=== PATIENT | female | born 1960 | race Caucasian/White ===

== ENCOUNTER 2016-06-13 12:08 | Inpatient (IN) | payer OTHER ==
[2016-06-13 14:44] VITALS: BMI 26.4
[2016-06-13] MEDS ORDERED: MAGNESIUM CITRATE 300 ML BOTTLE PO PRN (15:26)
[2016-06-13] MEDS ORDERED: LOPERAMIDE HCL 2 MG CAPSULE PO PRN (15:26)
[2016-06-13] MEDS ORDERED: NICOTINE POLACRILEX 2 MG GUM BC PRN (15:26)
[2016-06-13] MEDS ORDERED: P-EPHED 60MG/TRIPROLIDI 2.5MG TABLET PO PRN (15:26)
[2016-06-13] MEDS ORDERED: ACETAMINOPHEN 325 MG TABLET (FP) PO PRN (15:26)
[2016-06-13] MEDS ORDERED: MENTHOL/PHENOL 1 EACH UD MM PRN (15:26)
[2016-06-13] MEDS ORDERED: MAGNESIUM HYDROX 2400MG/30ML ORAL SUSPENSION 30 ML CUP PO PRN (15:26)
[2016-06-13] MEDS ORDERED: guaiFENesin/D-METHORPHAN HB 10 ML UNIT-DOSE CUPS PO PRN (15:26)
[2016-06-13] MEDS ORDERED: MAG HYDROX/AL HYDROX/SIMETH 30 ML UNIT-DOSE CUP PO PRN (15:26)
[2016-06-13] MEDS ORDERED: hydrOXYzine PAMOATE 50 MG CAPSULE (FP) PO PRN (15:26)
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
[2016-06-13] MEDS ORDERED: chlordiazePOXIDE HCL 25 MG CAPSULE PO PRN (15:33)
[2016-06-13] MEDS ORDERED: chlordiazePOXIDE HCL 25 MG CAPSULE PO ONE (16:30)
[2016-06-13] MEDS: CYCLOBENZAPRINE HCL 10 MG TABLET (FP) PO SCH ×2 (16:53→22:29)
[2016-06-13] MEDS: GABAPENTIN 100 MG CAPSULE (FP) PO SCH ×2 (16:53→22:30)
[2016-06-13] MEDS: NICOTINE 14 MG/24 HOURS TOPICAL PATCH TD SCH (16:53)
[2016-06-13] MEDS: chlordiazePOXIDE HCL 25 MG CAPSULE PO SCH ×2 (16:55→22:29)
[2016-06-13 20:07] LABS: URINE APPEARANCE SLCLOUDY; URINE BLOOD NEGATIVE (NEGATIVE); URINE COLOR AMBER; URINE GLUCOSE (UA) NEGATIVE (NEGATIVE); URINE KETONE TRACE (NEGATIVE); URINE NITRITE NEGATIVE (NEGATIVE); URINE UROBILINOGEN 2.0 E.U/dl E.U./dl (0.2-1.0)
[2016-06-13 20:11] LABS: URINE LEUK ESTERASE 1+ (NEGATIVE); URINE PROTEIN 1+ (NEGATIVE)
[2016-06-13 20:16] LABS: URINE BACTERIA RARE /hpf (NONE SEEN); URINE HYALINE CAST 112 /lpf; URINE MUCUS FEW; URINE RBC 4 /hpf (0-3); URINE WBC 7 /hpf (3-5)
[2016-06-13] MEDS ORDERED: AMITRIPTYLINE HCL 25 MG TABLET (FP) PO SCH (22:00)
[2016-06-13] MEDS: diphenhydrAMINE HCL 50 MG CAPSULE PO PRN (22:28)
[2016-06-13] MEDS: DOCUSATE SODIUM 100 MG CAPSULE (FP) PO SCH (22:28)
[2016-06-13] MEDS: NAPROXEN 500 MG TABLET (FP) PO SCH (22:30)
[2016-06-13] MEDS: THIAMINE HCL 100 MG TABLET (FP) PO SCH (22:30)
[2016-06-14] MEDS: chlordiazePOXIDE HCL 25 MG CAPSULE PO SCH ×4 (05:32→23:03)
[2016-06-14] MEDS: CYCLOBENZAPRINE HCL 10 MG TABLET (FP) PO SCH ×3 (05:32→22:24)
[2016-06-14] MEDS: GABAPENTIN 100 MG CAPSULE (FP) PO SCH ×3 (05:32→22:25)
[2016-06-14] MEDS ORDERED: METHADONE HCL 10 MG TABLET PO ONE (08:28)
[2016-06-14] MEDS ORDERED: METHADONE 80 MG, METHADONE 20 MG PO ONE (08:50)
[2016-06-14] MEDS ORDERED: METHADONE HCL 10 MG TABLET ONE (08:53)
[2016-06-14] MEDS ORDERED: METHADONE HCL 40 MG DISPERSABLE TABLET ONE (08:53)
[2016-06-14 10:04] LABS: MCH 33.2 pg (25.7-33.7); MCHC 34.4 g/dl (32.0-36.0); MEAN CELL VOLUME 96.5 fl (80-96); MEAN PLT VOLUME 11.5 fl (7.5-11.1); PLATELET COUNT 127 K/MM3 (134-434); RDW 13.6 % (11.6-15.6); WHITE BLOOD COUNT 10.7 K/mm3 (4.0-10.0)
[2016-06-14] MEDS: PRENATAL VITAMINS W/ FOLIC ACID TABLET (FP) PO SCH (10:31)
[2016-06-14] MEDS: NAPROXEN 500 MG TABLET (FP) PO SCH ×2 (10:31→22:24)
[2016-06-14] MEDS: NICOTINE 14 MG/24 HOURS TOPICAL PATCH TD SCH (10:32)
[2016-06-14 11:12] LABS: ALBUMIN 3.8 g/dl (3.4-5.0); ALK PHOS 178 U/L (45-117); ANION GAP 7 (8-16); BILIRUBIN,TOTAL 0.8 mg/dL (0.2-1.0); CALCIUM 9.2 mg/dL (8.5-10.1); CO2 31 mmol/L (21-32); CREATININE 0.9 mg/dL (0.55-1.02); GLUCOSE,RANDOM 181 mg/dL (74-106); SGOT/AST 52 U/L (15-37); SGPT/ALT 52 U/L (12-78)
--- NOTE | 2016-06-14 11:50 | PN ---
S CIWA - CIWA Score Nausea/Vomitin Muscle Tremors: 2 Anxiety: 3 Agitation: 3 Paroxysmal Sweats: 2 Orientation: 0-Oriented Tacttile Disturbances: 2-Mild Itch/Numbness/Burn Auditory Disturbances: 0-None Visual Disturbances: 0-None Headache: 0-None Present CIWA-Ar Total Score: 14 S Progress Note (SOAP) Subjective: interrupted sleep, lbp, Objective: 06/14/16 11:48 Vital Signs Temperature 97.9 F 06/14/16 09:39 Pulse Rate 93 H 06/14/16 09:39 Respiratory Rate 18 06/14/16 09:39 Blood Pressure 115/59 06/14/16 09:39 O2 Sat by Pulse Oximetry (%) Laboratory Tests 06/13/16 06/13/16 06/14/16 15:55 19:00 05:31 WBC RBC Hgb Hct MCV MCHC RDW Plt Count MPV Sodium Potassium Chloride Carbon Dioxide Anion Gap BUN Creatinine Creat Clearance w eGFR POC Glucometer 146 117 Random Glucose Calcium Total Bilirubin AST ALT Alkaline Phosphatase Total Protein Albumin Urine Color Mary Urine Appearance Slcloudy Urine pH 5.0 Ur Specific [place] 1.035 Urine Protein 1+ H Urine Glucose (UA) Negative Urine Ketones Trace H Urine Blood Negative Urine Nitrite Negative Urine Bilirubin 2.0 Urine Urobilinogen 2.0 e.u/dl H Ur Leukocyte Esterase 1+ H Urine RBC 4 Urine WBC 7 Ur Epithelial Cells Rare Urine Bacteria Rare Hyaline Casts 112 Urine Mucus Few RPR Titer 06/14/16 06/14/16 06/14/16 05:50 05:50 05:50 WBC 10.7 H RBC 4.86 Hgb 16.1 H Hct 46.8 H MCV 96.5 H MCHC 34.4 RDW 13.6 Plt Count 127 L MPV 11.5 H D Sodium 136 Potassium 4.4 Chloride 98 Carbon Dioxide 31 Anion Gap 7 L BUN 17 D Creatinine 0.9 D Creat Clearance w eGFR > 60 POC Glucometer Random Glucose 181 H D Calcium 9.2 Total Bilirubin 0.8 AST 52 H D ALT 52 Alkaline Phosphatase 178 H Total Protein 8.0 Albumin 3.8 Urine Color Urine Appearance Urine pH Ur Specific [place] Urine Protein Urine Glucose (UA) Urine Ketones Urine Blood Urine Nitrite Urine Bilirubin Urine Urobilinogen Ur Leukocyte Esterase Urine RBC Urine WBC Ur Epithelial Cells Urine Bacteria Hyaline Casts Urine Mucus RPR Titer Nonreactive pt aox3 , ambulating Assessment: 06/14/16 11:49 withdrawl sx's Plan: cont. detox increase fluids lidocaine patch
--- NOTE | 2016-06-14 14:03 | CONSULT ---
[facility] Psychiatric Consult - Data Date of interview: 06/14/16 Admission source: [facility] Identifying data: Readmission to [facility] for this 56 y/o female seeking detox treatment on for heroin dependence.Patient is single,a mother of two,domiciled,unemployed and supported on SSI benefits. Substance Abuse History: - Smoking Cessation. Smoking history: Current every day smoker. Have you smoked in the past 12 months: Yes. Aproximately how many cigarettes per day: 10. Hx Chewing Tobacco Use: No. Initiated information on smoking cessation: Yes. 'Breaking Loose' booklet given: 06/13/16. - Substance & Tx. History. Hx Alcohol Use: No. Hx Substance Use: Yes. Substance Use Type : Heroin, Opiates, Prescribed, Tranquilizers. Hx Substance Use Treatment: Yes ( on MMTP). - Substances Abused. Benzodiazepine (Klonopin). Route: Oral. Frequency: Daily. Amount used: 4 tablets, 2mg. Age of first use: 16. Date of Last Use: 06/12/16. Heroin. Route: Injection. Frequency: Daily. Amount used: injected x1 year has not used for many years. Age of first use: 28. Confirmed by patient. Medical History: Remarkable for diabetes mellitus-type II,bronchial asthma, hepatitis C,hypercholesterolemia,neuropathy,withdrawal-related seizures (2012) and tubal ligation. Psychiatric History: Patient admits to a history of two psychiatric hospitalizations ([facility]) years ago.Ms Campuzano endorses MDD,Anxiety Disorder and Schizophrenia.She gets her outpatient psychiatric services at [facility] also [facility] ([facility]).Ms Campuzano indicates her medications as klonopin and sertraline (doses not recalled).Remote history of two suicide attempts (wrist-cutting and hanging). Physical/Sexual Abuse/Trauma History: Patient denies. Additional Comment: Urine Drug Screen Results: OPI-Opiates, BZO-Benzodiazepines , MTD-Methadone, TCA-Tricyclic Antidepress, OXY-Oxycodone.Noted. Mental Status Exam - Mental Status Exam Alert and Oriented to: Time, Place, Person Cognitive Function: Good Patient Appearance: Disheveled Mood: Withdrawn, Anxious Affect: Mood Congruent Patient Behavior: Sedated, Fatigued, Talkative, Cooperative Speech Pattern: Clear, Appropriate (bahraini-speaking but able to communicate with this card writer hand) Voice Loudness: Normal Thought Process: Goal Oriented Thought Disorder: Not Present Hallucinations: Denies Suicidal Ideation: Denies Homicidal Ideation: Denies Insight/Judgement: Poor Sleep: Fair Appetite: Good Muscle strength/Tone: Normal Gait/Station: Normal Psychiatric Findings - Problem List (Trail 1, 2,3) (1) Opioid dependence on agonist therapy Current Visit: Yes Status: Acute (2) Sedative dependence Current Visit: Yes Status: Acute (3) Substance induced mood disorder Current Visit: Yes Status: Acute (4) Depressive disorder Current Visit: Yes Status: Chronic Comment: By history. (5) Diabetes Current Visit: Yes Status: Chronic Qualifiers: Diabetes mellitus type: type 2 Diabetes mellitus complication status: without complication (6) Chronic back pain Current Visit: Yes Status: Chronic Qualifiers: Back pain location: low back pain (7) Hepatitis C carrier Current Visit: Yes Status: Chronic (8) Hyperlipidemia Current Visit: Yes Status: Chronic - Initial Treatment Plan Initial Treatment Plan: Psychoeducation.Detoxification.Medications :zoloft 50 mg po daily.Side effects/benefits discussed with patient.She agrees with this plan.Medications were verified through review of pharmacy claims (noted filled scripts for sertraline,gabapentin and zolpidem on 05/14/16 @ [facility]).Observation.
[2016-06-14] MEDS: THIAMINE HCL 100 MG TABLET (FP) PO SCH (22:23)
[2016-06-14] MEDS: DOCUSATE SODIUM 100 MG CAPSULE (FP) PO SCH (22:24)
[2016-06-15] MEDS ORDERED: METHADONE HCL 40 MG DISPERSABLE TABLET ONE (04:42)
[2016-06-15] MEDS ORDERED: METHADONE HCL 10 MG TABLET ONE (04:42)
[2016-06-15] MEDS: GABAPENTIN 100 MG CAPSULE (FP) PO SCH ×4 (05:08→22:36)
[2016-06-15] MEDS: chlordiazePOXIDE HCL 25 MG CAPSULE PO SCH ×2 (05:08→10:41)
[2016-06-15] MEDS: METHADONE 80 MG, METHADONE 20 MG PO SCH (05:08)
[2016-06-15] MEDS: CYCLOBENZAPRINE HCL 10 MG TABLET (FP) PO SCH ×4 (05:08→22:37)
[2016-06-15] MEDS ORDERED: METHADONE HCL 40 MG DISPERSABLE TABLET PO SCH (06:00)
[2016-06-15] MEDS: SERTRALINE HCL 50 MG TABLET (FP) PO SCH (10:41)
[2016-06-15] MEDS: PRENATAL VITAMINS W/ FOLIC ACID TABLET (FP) PO SCH (10:41)
[2016-06-15] MEDS: NAPROXEN 500 MG TABLET (FP) PO SCH ×2 (10:43→22:36)
[2016-06-15] MEDS: NICOTINE 14 MG/24 HOURS TOPICAL PATCH TD SCH (11:30)
--- NOTE | 2016-06-15 11:36 | PN ---
[facility] CIWA - CIWA Score Nausea/Vomitin-No Nausea/No Vomiting Muscle Tremors: 3 Anxiety: 3 Agitation: 4-Moderately Restless Paroxysmal Sweats: 3 Orientation: 0-Oriented Tacttile Disturbances: 0-None Auditory Disturbances: 0-None Visual Disturbances: 0-None Headache: 0-None Present CIWA-Ar Total Score: 13 S Progress Note (SOAP) Subjective: agitation anxiety sweats constipation Objective: 06/15/16 11:35 Vital Signs Temperature 98.2 F 06/15/16 09:42 Pulse Rate 89 06/15/16 09:42 Respiratory Rate 16 06/15/16 09:42 Blood Pressure 120/62 06/15/16 09:42 O2 Sat by Pulse Oximetry (%) Laboratory Tests 06/13/16 06/13/16 06/14/16 15:55 19:00 05:31 WBC RBC Hgb Hct MCV MCHC RDW Plt Count MPV Sodium Potassium Chloride Carbon Dioxide Anion Gap BUN Creatinine Creat Clearance w eGFR POC Glucometer 146 117 Random Glucose Calcium Total Bilirubin AST ALT Alkaline Phosphatase Total Protein Albumin Urine Color Mary Urine Appearance Slcloudy Urine pH 5.0 Ur Specific [place] 1.035 Urine Protein 1+ H Urine Glucose (UA) Negative Urine Ketones Trace H Urine Blood Negative Urine Nitrite Negative Urine Bilirubin 2.0 Urine Urobilinogen 2.0 e.u/dl H Ur Leukocyte Esterase 1+ H Urine RBC 4 Urine WBC 7 Ur Epithelial Cells Rare Urine Bacteria Rare Hyaline Casts 112 Urine Mucus Few RPR Titer 06/14/16 06/14/16 06/14/16 05:50 05:50 05:50 WBC 10.7 H RBC 4.86 Hgb 16.1 H Hct 46.8 H MCV 96.5 H MCHC 34.4 RDW 13.6 Plt Count 127 L MPV 11.5 H D Sodium 136 Potassium 4.4 Chloride 98 Carbon Dioxide 31 Anion Gap 7 L BUN 17 D Creatinine 0.9 D Creat Clearance w eGFR > 60 POC Glucometer Random Glucose 181 H D Calcium 9.2 Total Bilirubin 0.8 AST 52 H D ALT 52 Alkaline Phosphatase 178 H Total Protein 8.0 Albumin 3.8 Urine Color Urine Appearance Urine pH Ur Specific [place] Urine Protein Urine Glucose (UA) Urine Ketones Urine Blood Urine Nitrite Urine Bilirubin Urine Urobilinogen Ur Leukocyte Esterase Urine RBC Urine WBC Ur Epithelial Cells Urine Bacteria Hyaline Casts Urine Mucus RPR Titer Nonreactive 06/14/16 06/15/16 16:30 06:24 WBC RBC Hgb Hct MCV MCHC RDW Plt Count MPV Sodium Potassium Chloride Carbon Dioxide Anion Gap BUN Creatinine Creat Clearance w eGFR POC Glucometer 147 166 Random Glucose Calcium Total Bilirubin AST ALT Alkaline Phosphatase Total Protein Albumin Urine Color Urine Appearance Urine pH Ur Specific [place] Urine Protein Urine Glucose (UA) Urine Ketones Urine Blood Urine Nitrite Urine Bilirubin Urine Urobilinogen Ur Leukocyte Esterase Urine RBC Urine WBC Ur Epithelial Cells Urine Bacteria Hyaline Casts Urine Mucus RPR Titer awake/alert ambulating no acute distress Assessment: 06/15/16 11:35 withdrawal sx Plan: continue detox increase fluids citroma prn
--- NOTE | 2016-06-15 12:32 | EKG ---
Test Reason : Blood Pressure : / mmHG Vent. Rate : 089 BPM Atrial Rate : 089 BPM P-R Int : 190 ms QRS Dur : 092 ms QT Int : 398 ms P-R-T Axes : 076 075 057 degrees QTc Int : 484 ms NORMAL SINUS RHYTHM NONSPECIFIC T WAVE ABNORMALITY PROLONGED QT ABNORMAL ECG NO PREVIOUS ECGS AVAILABLE Confirmed by LILLIAM EID MD ([id number]) on 06/15/2016 12:31:58 PM Referred By: Confirmed By:LILLIAM EID MD
[2016-06-15] MEDS: chlordiazePOXIDE 5 MG CAPSULE PO SCH ×2 (17:35→22:36)
[2016-06-15] MEDS: THIAMINE HCL 100 MG TABLET (FP) PO SCH (22:36)
[2016-06-15] MEDS: DOCUSATE SODIUM 100 MG CAPSULE (FP) PO SCH (22:36)
[2016-06-16] MEDS ORDERED: METHADONE HCL 10 MG TABLET ONE (04:52)
[2016-06-16] MEDS ORDERED: METHADONE HCL 40 MG DISPERSABLE TABLET ONE (04:53)
[2016-06-16] MEDS: CYCLOBENZAPRINE HCL 10 MG TABLET (FP) PO SCH ×3 (05:05→22:30)
[2016-06-16] MEDS: GABAPENTIN 100 MG CAPSULE (FP) PO SCH ×3 (05:05→22:31)
[2016-06-16] MEDS: chlordiazePOXIDE 5 MG CAPSULE PO SCH ×2 (05:06→10:27)
[2016-06-16] MEDS: METHADONE 80 MG, METHADONE 20 MG PO SCH (06:10)
[2016-06-16] MEDS: PRENATAL VITAMINS W/ FOLIC ACID TABLET (FP) PO SCH (10:27)
[2016-06-16] MEDS: NICOTINE 14 MG/24 HOURS TOPICAL PATCH TD SCH (10:27)
[2016-06-16] MEDS: NAPROXEN 500 MG TABLET (FP) PO SCH ×2 (10:27→22:31)
[2016-06-16] MEDS: SERTRALINE HCL 50 MG TABLET (FP) PO SCH (10:28)
[2016-06-16] MEDS ORDERED: LIDOCAINE 5% TOPICAL PATCH TP ONE (12:53)
--- NOTE | 2016-06-16 12:57 | PN ---
BHS Progress Note (SOAP) Subjective: BUT HAVING PAINFUL BACK AND RT SHOULDER Objective: 06/16/16 12:55 Vital Signs Temperature 97.9 F 06/16/16 10:08 Pulse Rate 85 06/16/16 10:08 Respiratory Rate 18 06/16/16 10:08 Blood Pressure 119/62 06/16/16 10:08 O2 Sat by Pulse Oximetry (%) Laboratory Tests 06/13/16 06/13/16 06/14/16 15:55 19:00 05:31 WBC RBC Hgb Hct MCV MCHC RDW Plt Count MPV Sodium Potassium Chloride Carbon Dioxide Anion Gap BUN Creatinine Creat Clearance w eGFR POC Glucometer 146 117 Random Glucose Calcium Total Bilirubin AST ALT Alkaline Phosphatase Total Protein Albumin Urine Color Mary Urine Appearance Slcloudy Urine pH 5.0 Ur Specific [place] 1.035 Urine Protein 1+ H Urine Glucose (UA) Negative Urine Ketones Trace H Urine Blood Negative Urine Nitrite Negative Urine Bilirubin 2.0 Urine Urobilinogen 2.0 e.u/dl H Ur Leukocyte Esterase 1+ H Urine RBC 4 Urine WBC 7 Ur Epithelial Cells Rare Urine Bacteria Rare Hyaline Casts 112 Urine Mucus Few RPR Titer 06/14/16 06/14/16 06/14/16 05:50 05:50 05:50 WBC 10.7 H RBC 4.86 Hgb 16.1 H Hct 46.8 H MCV 96.5 H MCHC 34.4 RDW 13.6 Plt Count 127 L MPV 11.5 H D Sodium 136 Potassium 4.4 Chloride 98 Carbon Dioxide 31 Anion Gap 7 L BUN 17 D Creatinine 0.9 D Creat Clearance w eGFR > 60 POC Glucometer Random Glucose 181 H D Calcium 9.2 Total Bilirubin 0.8 AST 52 H D ALT 52 Alkaline Phosphatase 178 H Total Protein 8.0 Albumin 3.8 Urine Color Urine Appearance Urine pH Ur Specific [place] Urine Protein Urine Glucose (UA) Urine Ketones Urine Blood Urine Nitrite Urine Bilirubin Urine Urobilinogen Ur Leukocyte Esterase Urine RBC Urine WBC Ur Epithelial Cells Urine Bacteria Hyaline Casts Urine Mucus RPR Titer Nonreactive 06/14/16 06/15/16 06/16/16 16:30 06:24 06:08 WBC RBC Hgb Hct MCV MCHC RDW Plt Count MPV Sodium Potassium Chloride Carbon Dioxide Anion Gap BUN Creatinine Creat Clearance w eGFR POC Glucometer 147 166 199 Random Glucose Calcium Total Bilirubin AST ALT Alkaline Phosphatase Total Protein Albumin Urine Color Urine Appearance Urine pH Ur Specific [place] Urine Protein Urine Glucose (UA) Urine Ketones Urine Blood Urine Nitrite Urine Bilirubin Urine Urobilinogen Ur Leukocyte Esterase Urine RBC Urine WBC Ur Epithelial Cells Urine Bacteria Hyaline Casts Urine Mucus RPR Titer PT AOX3 IN NAD AMBULATING Assessment: 06/16/16 12:55 WITHDRAWL SX'S RT SHOULDER PAIN S/P RCT LBP Plan: CONT. DETOX INCREASE FLUIDS LIDOCAINE PATCH/D
[2016-06-16] MEDS: chlordiazePOXIDE HCL 10 MG CAPSULE PO SCH ×2 (18:05→22:30)
[2016-06-16] MEDS: DOCUSATE SODIUM 100 MG CAPSULE (FP) PO SCH (22:30)
[2016-06-16] MEDS: diphenhydrAMINE HCL 50 MG CAPSULE PO PRN (22:30)
[2016-06-16] MEDS: THIAMINE HCL 100 MG TABLET (FP) PO SCH (22:31)
[2016-06-17] MEDS ORDERED: METHADONE HCL 40 MG DISPERSABLE TABLET ONE (04:44)
[2016-06-17] MEDS ORDERED: METHADONE HCL 10 MG TABLET ONE (04:44)
[2016-06-17] MEDS: CYCLOBENZAPRINE HCL 10 MG TABLET (FP) PO SCH (05:47)
[2016-06-17] MEDS: chlordiazePOXIDE HCL 10 MG CAPSULE PO SCH (05:47)
[2016-06-17] MEDS: GABAPENTIN 100 MG CAPSULE (FP) PO SCH (05:47)
[2016-06-17] MEDS: METHADONE 80 MG, METHADONE 20 MG PO SCH (05:47)
[2016-06-17] MEDS: PRENATAL VITAMINS W/ FOLIC ACID TABLET (FP) PO SCH (09:00)
[2016-06-17] MEDS: NAPROXEN 500 MG TABLET (FP) PO SCH (09:00)
[2016-06-17] MEDS: SERTRALINE HCL 50 MG TABLET (FP) PO SCH (09:01)
--- NOTE | 2016-06-17 09:45 | DS ---
[facility] Detox Discharge Summary Admission Date: 06/13/16 Discharge Date: 06/17/16 - History Present History: Opioid Dependence, Sedative Dependence - Physical Exam Results Vital Signs: Vital Signs Temperature 97.7 F 06/17/16 07:16 Pulse Rate 94 H 06/17/16 07:16 Respiratory Rate 20 06/17/16 07:16 Blood Pressure 111/60 06/17/16 07:16 O2 Sat by Pulse Oximetry (%) - Treatment Hospital Course: Detox Protocol Followed, Detoxed Safely, Responded well, Discharged Condition Good, Rehab Referral Accepted - Medication Discharge Medications: Ambulatory Orders Methadone [Dolophine] 100 mg PO DAILY 10/03/12 Sertraline HCl [Zoloft -] 50 mg PO DAILY #30 tablet 06/14/16 Gabapentin [Neurontin -] 100 mg PO TID #0 capsule 06/17/16 - Diagnosis (1) Opioid dependence on agonist therapy Current Visit: Yes Status: Chronic (2) Sedative dependence Current Visit: Yes Status: Chronic (3) Substance induced mood disorder Current Visit: Yes Status: Acute (4) Chronic back pain Current Visit: Yes Status: Chronic Qualifiers: Back pain location: low back pain (5) Depressive disorder Current Visit: Yes Status: Chronic (6) Diabetes Current Visit: Yes Status: Chronic Qualifiers: Diabetes mellitus type: type 2 Diabetes mellitus complication status: without complication (7) Hepatitis C carrier Current Visit: Yes Status: Chronic (8) Hyperlipidemia Current Visit: Yes Status: Chronic - AMA Did Patient Leave Against Medical Advice: No
[2016-06-17] MEDS ORDERED: LIDOCAINE 5% TOPICAL PATCH TP SCH (10:00)
[2016-06-17 10:04] VITALS: BP 125/97; PULSE 97; TEMP 97.3
== END 2016-06-17 09:15 | disposition home or self-care (01) | DRG 773 ==
LOC: YASAS 12:08 → Y6N 16:07
PROVIDERS: ADMIT Internal Medicine Addiction Medicine; ATTEND Internal Medicine Addiction Medicine
PROC: HZ2ZZZZ Detoxification Services for Substance Abuse Treatment (ICD-10-PCS; principal; 2016-06-13)
DX: F13.230 Sedative, hypnotic or anxiolytic dependence with withdrawal, uncomplicated (principal); F11.20 Opioid dependence, uncomplicated; F17.210 Nicotine dependence, cigarettes, uncomplicated; F19.24 Other psychoactive substance dependence with psychoactive substance-induced mood disorder; F32.9 Major depressive disorder, single episode, unspecified; E78.5 Hyperlipidemia, unspecified; E11.9 Type 2 diabetes mellitus without complications; M54.5 Low back pain; G89.29 Other chronic pain; B18.2 Chronic viral hepatitis C; Z86.69 Personal history of other diseases of the nervous system and sense organs; M25.511 Pain in right shoulder
CPT/HCPCS: 36415; 80053; 81003; 81015; 85027; 86593; 93005; 93010

== ENCOUNTER 2020-01-06 09:50 | Inpatient (IN) | payer OTHER ==
--- NOTE | 2020-01-06 10:13 | BHS.RME ---
Substance Use & Tx History - Substance Use History Klonopin Substance amount: 2mg 7 tabs Frequency of use: Daily Substance route: Oral Date of Last Use: 01/05/20 Other Opiates/Synthetics Substance amount: vicodin 10-325 Frequency of use: Less than 3 times per week Substance route: Oral Date of Last Use: 01/05/20 Nicotine Substance amount: 1-2 packs Frequency of use: Daily Substance route: Oral Date of Last Use: 01/05/20 Physical/Psych/Mental Status - Behavior General Behavior: Increased activity (restlessness, agitation) Eye Contact: Normal - Cooperativeness Cooperativeness: Cooperative - Thinking Thought Processes: Tight, Logical, Goal Directed - Physical Health Problems Is patient presently having any pain?: No Does patient presently have any injuries (include location): No Does patient currently have a fever: No Is patient : No CIWA Nausea/Vomitin Muscle Tremors: 2 Anxiety: 3 Agitation: 3 Paroxysmal Sweats: 2 Orientation: 3-Disoriented Date>2 days Tacttile Disturbances: 0-None Auditory Disturbances: 0-None Visual Disturbances: 0-None Headache: 0-None Present CIWA-Ar Total Score: 16
[2020-01-06 10:56] VITALS: BMI 22.2
[2020-01-06] MEDS ORDERED: PNEUMOC 13-VAL CONJ-DIP CRM/PF 0.5 ML DISP.SYRIN IM ONE (10:58)
--- NOTE | 2020-01-06 11:08 | HP ---
CIWA Score Nausea/Vomitin Muscle Tremors: 2 Anxiety: 3 Agitation: 3 Paroxysmal Sweats: 2 Orientation: 3-Disoriented Date>2 days Tacttile Disturbances: 0-None Auditory Disturbances: 0-None Visual Disturbances: 0-None Headache: 0-None Present CIWA-Ar Total Score: 16 - Admission Criteria OASAS Guidelines: Admission for Medically Managed Detox: Requires at least one of the followin. CIWA greater than 12 2. Seizures within the past 24 hours 3. Delirium tremens within the past 24 hours 4. Hallucinations within the past 24 hours 5. Acute intervention needed for co occurring medical disorder 6. Acute intervention needed for co occurring psychiatric disorder 7. Severe withdrawal that cannot be handled at a lower level of care (continued vomiting, continued diarrhea, abnormal vital signs) requiring intravenous medication and/or fluids 8. 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 She states she relapsed 1.5 years ago using Klonopin 2 mgs tablets she is buying on the streets because her prescriber would no longer supply her with them. She states she relapsed due to the of her and cannot stop on her own. She also has chronic low back pain for which she is prescribed vicodin which she uses sparingly. She is also on a methadone program and taking 80mg of methadone daily at [facility]. Nurses have confirmed this and last date of dose as 01/06/20 with 30 THB's. Substance Use & Tx History - Substance Use History Klonopin Substance amount: 2mg 7 tabs Frequency of use: Daily Substance route: Oral Date of Last Use: 01/05/20 Other Opiates/Synthetics Substance amount: vicodin 10-325 Frequency of use: Less than 3 times per week Substance route: Oral Date of Last Use: 01/05/20 Nicotine Substance amount: 1-2 packs Frequency of use: Daily Substance route: Oral Date of Last Use: 01/05/20 PMH: Asthma, Chronic Back Pain, HCV treated Psurg: Right humeral fracture, Hysterectomy Psych: None Lives in an apartment with her nephew. She has no legal issues. urine tox: Positive for DRE, MTD, MOP She meets criteria as she states that if she attempts to stops, she almost has had a seizure in the past. She states she cannot detox on her own. History Source: Patient Limitations to Obtaining History: No Limitations - Past Surgical History Additional Past Surgical History: Right humeral Fracture, Hysterectomy - Smoking History Smoking history: Current every day smoker Have you smoked in the past 12 months: Yes Aproximately how many cigarettes per day: 10 - Alcohol/Substance Use Hx Alcohol Use: No History of Substance Use: reports: Prescription - Social History Usual Living Arrangement: Yes: Alone Do you think of yourself as: Straight/Heterosexual ADL: Independent Occupation: unemployed History of Recent Travel: No Admission [facility] Allergies/Adverse Reactions: Allergies Allergy/AdvReac Type Severity Reaction Status Date / Time Penicillins Allergy Severe Swelling Verified 05/01/13 16:08 Exam Limitations: No Limitations - Ebola screening Have you traveled outside of the country in the last 21 days: No Have you had contact with anyone from an Ebola affected area: No Have you been sick,other than usual withdrawal symptoms: No Do you have a fever: No - Review of Systems Constitutional: Chills, Diaphoresis EENT: reports: No Symptoms Reported Respiratory: reports: No Symptoms reported Cardiac: reports: No Symptoms Reported GI: reports: No Symptoms Reported : reports: No Symptoms Reported Musculoskeletal: reports: No Symptoms Reported Integumentary: reports: No Symptoms Reported Neuro: reports: No Symptoms reported Endocrine: reports: No Symptoms Reported Hematology: reports: No Symptoms Reported Psychiatric: reports: Judgement Intact, Mood/Affect Appropiate, Orientated x3, Agitated, Anxious Other Systems: Reviewed and Negative Patient History - Patient Medical History Hx Anemia: No Hx Asthma: Yes (Pt is on MDI) Hx Chronic Obstructive Pulmonary Disease (COPD): No Hx Cancer: No Hx Cardiac Disorders: No Hx Congestive Heart Failure: No Hx Hypertension: No Hx Hypercholesterolemia: Yes (LIPITOR IN THE PAST BUT NOT TAKING DUE TO LIVER PROBLEM) Hx Pacemaker: No HX Cerebrovascular Accident: No Hx Seizures: Yes (Xanax related Last in 04/23/13) Hx Dementia: No Hx Diabetes: Yes Hx Gastrointestinal Disorders: No Hx Liver Disease: Yes Hx Genitourinary Disorders: No Hx Sexually Transmitted Disorders: No Hx Renal Disease (ESRD): No Hx Thyroid Disease: No Hx Human Immunodeficiency Virus (HIV): No Hx Hepatitis C: Yes (TO START TREATMENT AT [facility]) Hx Depression: Yes Hx Suicide Attempt: Yes (hopsitalized x2 months at [facility] several years ago) Hx Bipolar Disorder: No Hx Schizophrenia: No - Patient Surgical History Past Surgical History: Yes Hx Neurologic Surgery: No Hx Cataract Extraction: No Hx Cardiac Surgery: No Hx Lung Surgery: No Hx Breast Surgery: No Hx Breast Biopsy: No Hx Abdominal Surgery: No Hx Appendectomy: No Hx Cholecystectomy: No Hx Genitourinary Surgery: No Hx Section: No Hx Orthopedic Surgery: Yes (RT. ARM/SHOULDER) Other Surgical History: Tubal ligation Anesthesia Reaction: No - PPD History Date: 06/15/16 Results: 0 mm - Smoking Cessation Smoking history: Current every day smoker Have you smoked in the past 12 months: Yes Aproximately how many cigarettes per day: 10 Hx Chewing Tobacco Use: No Initiated information on smoking cessation: Yes 'Breaking Loose' booklet given: 01/06/20 - Substances abused Benzodiazepine (Klonopin) Substance route: Oral Frequency: Daily Amount used: 5 pills (10mg) Age of first use: 43 Date of last use: 01/05/20 Other Other (specify): Vicodin Substance route: Oral Frequency: 1-2 times per week Amount used: 10-325 tabs 1 tab Age of first use: 57 Date of last use: 01/05/20 Admission Physical Exam BHS - Vital Signs Vital Signs: Vital Signs - 24 hr 01/06/20 10:45 Temperature 96.8 F L Pulse Rate 105 H Respiratory 19 Rate Blood Pressure 102/67 - Physical General Appearance: Yes: Moderate Distress, Tremorous, Irritable, Sweating, Anxious HEENTM: Yes: EOMI, Hearing grossly Normal, Normal ENT Inspection, Normocephalic, Normal Voice, JUAN, Pharynx Normal, Tm's normal Respiratory: Yes: Chest Non-Tender, Lungs Clear, Normal Breath Sounds, No Respiratory Distress, No Accessory Muscle Use Neck: Yes: No masses,lesions,Nodules, Supple, Trachea in good position Breast: Yes: Within Normal Limits Cardiology: Yes: Regular Rhythm, Regular Rate, S1, S2 Abdominal: Yes: Normal Bowel Sounds, Non Tender, Flat, Soft Genitourinary: Yes: Within Normal Limits Back: Yes: Normal Inspection Musculoskeletal: Yes: full range of Motion, Gait Steady, Pelvis Stable Extremities: Yes: Normal Capillary Refill, Normal Inspection, Normal Range of Motion, Non-Tender Neurological: Yes: blood typer II-XII NML intact, Fully Oriented, Alert, Motor Strength 5/5, Normal Mood/Affect, Normal Response Integumentary: Yes: Normal Color, Dry, Warm Lymphatic: Yes: Within Normal Limits - Diagnostic (1) Substance induced mood disorder Current Visit: Yes Status: Acute (2) Chronic back pain Current Visit: Yes Status: Chronic Qualifiers: Back pain location: low back pain (3) Depressive disorder Current Visit: Yes Status: Chronic Comment: By history. (4) Diabetes Current Visit: Yes Status: Chronic Qualifiers: Diabetes mellitus type: type 2 Diabetes mellitus complication status: without complication (5) Hepatitis C carrier Current Visit: Yes Status: Chronic (6) Hyperlipidemia Current Visit: Yes Status: Chronic (7) Opioid dependence on agonist therapy Current Visit: Yes Status: Chronic (8) Sedative dependence Current Visit: Yes Status: Chronic Cleared for Admission S - Detox or Rehab [facility] Level of Care: Medically Managed Detox Regimen/Protocol: Ativan Claeared for Rehab Admission: No Screened but not Admitted - Documentation of Visit Screened but not Admitted: No Breathalyzer - Breathalyzer Breathalyzer: 0 Vital Signs - Vital Signs Vital signs refused: No Temperature: 96.8 F Temperature source: Oral Pulse Rate: 105 Respiratory Rate: 19 Blood Pressure: 102/67 BP Location: Left Arm Blood Pressure position: Sitting - Height Height: 5 ft 6 in - Weight Weight: 138 lb Weight measurement method: Standing scale - BMI Body Mass Index (BMI): 22.2 - Bowel Function Bowel Movement: No Inpatient Rehab Admission - Rehab Decision to Admit Inpatient rehab admission?: No
[2020-01-06] MEDS ORDERED: LORazepam 1 MG TABLET PO PRN (11:18)
[2020-01-06] MEDS ORDERED: IBUPROFEN 400 MG TABLET (FP) PO PRN (11:18)
[2020-01-06] MEDS ORDERED: MAGNESIUM HYDROX 2400MG/30ML ORAL SUSPENSION 30 ML CUP PO PRN (11:18)
[2020-01-06] MEDS ORDERED: METHOCARBAMOL 500 MG TABLET PO PRN (11:18)
[2020-01-06] MEDS ORDERED: MENTHOL/PHENOL 1 EACH UD MM PRN (11:18)
[2020-01-06] MEDS ORDERED: MAGNESIUM CITRATE 300 ML BOTTLE PO PRN (11:18)
[2020-01-06] MEDS ORDERED: ACETAMINOPHEN 325 MG TABLET (FP) PO PRN ×2 (11:18)
[2020-01-06] MEDS ORDERED: BISMUTH SUBSALICYLATE 524 MG/30 ML UD PO PRN (11:18)
[2020-01-06] MEDS ORDERED: MAG HYDROX/AL HYDROX/SIMETH 30 ML UNIT-DOSE CUP PO PRN (11:18)
[2020-01-06] MEDS ORDERED: LORazepam 2 MG TABLET PO SCH (13:00)
[2020-01-06] MEDS ORDERED: ONDANSETRON *ODT* 4 MG TABLET SL ONE (13:30)
[2020-01-06] MEDS: NICOTINE 7 MG/24 HOURS TOPICAL PATCH TD SCH (13:41)
[2020-01-06] MEDS ORDERED: hydrOXYzine PAMOATE 25 MG CAPSULE (FP) PO SCH (14:00)
[2020-01-06] MEDS ORDERED: chlordiazePOXIDE HCL 25 MG CAPSULE PO PRN (14:37)
--- NOTE | 2020-01-06 14:42 | PN ---
[facility] Progress Note Note: pt states that her last detox visit with our facility she was placed on a librium taper and it really helps with her addiction to benzodiazapine; therefore, she had maintained sober and clean and no relapse until now. Her last detox with [facility] was in 2017. Pt will be placed on a librium taper. Pt was made aware and is willing to stay and begin her detox successfully. will continue to monitor. Pt appears very shaky, sweats, anxiety, irritable, restless, agitation. Pt will benefit with a librium taper and it out weights the risks.
[2020-01-06] MEDS: NICOTINE POLACRILEX 2 MG GUM BUC PRN ×2 (14:52→19:40)
[2020-01-06 15:57] LABS: HEMATOCRIT 42.3 % (32.4-45.2); HEMOGLOBIN 14.2 GM/dL (10.7-15.3); MCH 31.9 pg (25.7-33.7); MCHC 33.5 g/dl (32.0-36.0); MEAN CELL VOLUME 95.2 fl (80-96); PLATELET COUNT 168 K/MM3 (134-434); RBC 4.45 M/mm3 (3.60-5.2); RDW 13.6 % (11.6-15.6); WHITE BLOOD COUNT 10.3 K/mm3 (4.0-10.0)
[2020-01-06 16:05] LABS: BILIRUBIN,TOTAL 0.6 mg/dL (0.2-1); BLOOD UREA NITROGEN 9.3 mg/dL (7-18); CALCIUM 9.5 mg/dL (8.5-10.1); CREATININE 1.5 mg/dL (0.55-1.3); TOT PROT 7.4 g/dl (6.4-8.2)
[2020-01-06] MEDS: chlordiazePOXIDE HCL 25 MG CAPSULE PO SCH ×2 (16:43→22:18)
[2020-01-06] MEDS: hydrOXYzine PAMOATE 25 MG CAPSULE (FP) PO PRN (18:51)
--- NOTE | 2020-01-06 20:24 | PN ---
S Progress Note Note: Called to see patient who stated burned her lower lip on coffee earlier. Denies pain or tenderness in lips - states resolved after she applied ice. Inner and outer upper and lower lips w/o increased erythema or blistering. Plan: Ice to lips q2h prn Encouraged to ensure coffee or tea is cool enough to drink. Encouraged to notify nurse if blister of lip or tenderness.
[2020-01-06] MEDS: THIAMINE HCL 100 MG TABLET (FP) PO SCH (22:17)
[2020-01-06] MEDS: MELATONIN 5 MG TABLETS PO SCH (22:17)
[2020-01-07] MEDS: METHADONE HCL 40 MG DISPERSABLE TABLET PO SCH (05:13)
[2020-01-07] MEDS: chlordiazePOXIDE HCL 25 MG CAPSULE PO SCH ×4 (05:13→22:30)
[2020-01-07] MEDS: NICOTINE POLACRILEX 2 MG GUM BUC PRN ×2 (05:18→17:59)
[2020-01-07] MEDS ORDERED: METHADONE HCL 10 MG TABLET PO SCH (10:00)
[2020-01-07] MEDS: PRENATAL VITAMINS W/ FOLIC ACID TABLET (FP) PO SCH (10:22)
[2020-01-07] MEDS: NICOTINE 7 MG/24 HOURS TOPICAL PATCH TD SCH (10:22)
--- NOTE | 2020-01-07 10:41 | PN ---
S CIWA - CIWA Score Nausea/Vomitin-No Nausea/No Vomiting Muscle Tremors: 2 Anxiety: 3 Agitation: 3 Paroxysmal Sweats: 2 Orientation: 0-Oriented Tacttile Disturbances: 0-None Auditory Disturbances: 0-None Visual Disturbances: 0-None Headache: 0-None Present CIWA-Ar Total Score: 10 BHS Progress Note (SOAP) Subjective: sweats shakes constipation restless the librium is helping me out so much Objective: 01/07/20 10:41 Vital Signs Temperature 97.5 F L 01/07/20 06:07 Pulse Rate 77 01/07/20 06:07 Respiratory Rate 18 01/07/20 06:07 Blood Pressure 115/60 01/07/20 06:07 O2 Sat by Pulse Oximetry (%) 96 01/07/20 06:07 Laboratory Tests 01/06/20 01/06/20 01/06/20 11:00 11:00 11:00 WBC 10.3 H RBC 4.45 Hgb 14.2 Hct 42.3 MCV 95.2 MCH 31.9 MCHC 33.5 RDW 13.6 Plt Count 168 D MPV 10.0 D Sodium 138 Potassium 4.0 Chloride 103 Carbon Dioxide 25 Anion Gap 10 BUN 9.3 Creatinine 1.5 H Est GFR (CKD-EPI)AfAm 43.13 Est GFR (CKD-EPI)NonAf 37.21 Random Glucose 183 H Calcium 9.5 Total Bilirubin 0.6 AST 31 ALT 26 Alkaline Phosphatase 111 Total Protein 7.4 Albumin 4.0 Syphilis Serology COVID-19 (ISAAC) HIV Ag/Ab Combo Qual Negative 01/06/20 01/06/20 11:00 13:10 WBC RBC Hgb Hct MCV MCH MCHC RDW Plt Count MPV Sodium Potassium Chloride Carbon Dioxide Anion Gap BUN Creatinine Est GFR (CKD-EPI)AfAm Est GFR (CKD-EPI)NonAf Random Glucose Calcium Total Bilirubin AST ALT Alkaline Phosphatase Total Protein Albumin Syphilis Serology Non-reactive COVID-19 (ISAAC) Not detected HIV Ag/Ab Combo Qual labs noted random glucose 183. pt has a h/o diabetes aaox3 ambulating no acute distress Assessment: 01/07/20 10:48 withdrawals Plan: continue with librium taper as ordered increase water intake BGM ordered insulin sliding scale ordered for glucose coverage diet changed to NCS diet and glucerna with meals for supplement
[2020-01-07] MEDS ORDERED: BISACODYL 5 MG TABLET.DR (FP) PO PRN (10:52)
[2020-01-07] MEDS: INSULIN (NOVOLOG) ASPART 100 UNITS/ML 10ML VIAL SQ SCH ×2 (12:26→17:30)
[2020-01-07] MEDS: DOCUSATE SODIUM 100 MG CAPSULE (FP) PO SCH ×2 (13:42→21:56)
[2020-01-07] MEDS ORDERED: DOCUSATE SODIUM 100 MG CAPSULE (FP) PO SCH (14:00)
[2020-01-07] MEDS ORDERED: INSULIN SLIDING SCALE (NOVOLOG) 1 VIAL SQ ONE (16:58)
[2020-01-07] MEDS: MELATONIN 5 MG TABLETS PO SCH (21:56)
[2020-01-07] MEDS: THIAMINE HCL 100 MG TABLET (FP) PO SCH (21:56)
[2020-01-08] MEDS ORDERED: LORazepam 1 MG TABLET PO SCH (05:00)
[2020-01-08] MEDS: METHADONE HCL 40 MG DISPERSABLE TABLET PO SCH (05:59)
[2020-01-08] MEDS: chlordiazePOXIDE HCL 25 MG CAPSULE PO SCH ×4 (06:00→22:42)
[2020-01-08] MEDS: DOCUSATE SODIUM 100 MG CAPSULE (FP) PO SCH ×3 (06:00→22:42)
[2020-01-08] MEDS: INSULIN (NOVOLOG) ASPART 100 UNITS/ML 10ML VIAL SQ SCH ×2 (06:04→16:33)
[2020-01-08] MEDS: NICOTINE POLACRILEX 2 MG GUM BUC PRN ×2 (06:05→17:59)
[2020-01-08] MEDS: PRENATAL VITAMINS W/ FOLIC ACID TABLET (FP) PO SCH (10:12)
[2020-01-08] MEDS: NICOTINE 7 MG/24 HOURS TOPICAL PATCH TD SCH (10:13)
--- NOTE | 2020-01-08 10:41 | PN ---
S CIWA - CIWA Score Nausea/Vomitin-No Nausea/No Vomiting Muscle Tremors: 3 Anxiety: 2 Agitation: 2 Paroxysmal Sweats: 2 Orientation: 0-Oriented Tacttile Disturbances: 0-None Auditory Disturbances: 0-None Visual Disturbances: 0-None Headache: 0-None Present CIWA-Ar Total Score: 9 BHS Progress Note (SOAP) Subjective: constipation i need my medication ordered like i take them at home anxiety Objective: 01/08/20 10:40 Vital Signs Temperature 97.1 F L 01/08/20 06:02 Pulse Rate 60 01/08/20 06:02 Respiratory Rate 18 01/08/20 06:02 Blood Pressure 135/67 01/08/20 06:02 O2 Sat by Pulse Oximetry (%) 96 01/08/20 06:02 Laboratory Tests 01/06/20 01/06/20 01/06/20 11:00 11:00 11:00 WBC 10.3 H RBC 4.45 Hgb 14.2 Hct 42.3 MCV 95.2 MCH 31.9 MCHC 33.5 RDW 13.6 Plt Count 168 D MPV 10.0 D Sodium 138 Potassium 4.0 Chloride 103 Carbon Dioxide 25 Anion Gap 10 BUN 9.3 Creatinine 1.5 H Est GFR (CKD-EPI)AfAm 43.13 Est GFR (CKD-EPI)NonAf 37.21 POC Glucometer Random Glucose 183 H Calcium 9.5 Total Bilirubin 0.6 AST 31 ALT 26 Alkaline Phosphatase 111 Total Protein 7.4 Albumin 4.0 Syphilis Serology COVID-19 (ISAAC) HIV Ag/Ab Combo Qual Negative 01/06/20 01/06/20 01/07/20 11:00 13:10 16:40 WBC RBC Hgb Hct MCV MCH MCHC RDW Plt Count MPV Sodium Potassium Chloride Carbon Dioxide Anion Gap BUN Creatinine Est GFR (CKD-EPI)AfAm Est GFR (CKD-EPI)NonAf POC Glucometer 115 Random Glucose Calcium Total Bilirubin AST ALT Alkaline Phosphatase Total Protein Albumin Syphilis Serology Non-reactive COVID-19 (ISAAC) Not detected HIV Ag/Ab Combo Qual 01/08/20 05:58 WBC RBC Hgb Hct MCV MCH MCHC RDW Plt Count MPV Sodium Potassium Chloride Carbon Dioxide Anion Gap BUN Creatinine Est GFR (CKD-EPI)AfAm Est GFR (CKD-EPI)NonAf POC Glucometer 120 Random Glucose Calcium Total Bilirubin AST ALT Alkaline Phosphatase Total Protein Albumin Syphilis Serology COVID-19 (ISAAC) HIV Ag/Ab Combo Qual aaox3 ambulating no acute distress Assessment: 01/08/20 10:40 withdrawal sx Plan: continue detox bisacodyl 15mg qdaily prn
[2020-01-08] MEDS ORDERED: BISACODYL 5 MG TABLET.DR (FP) PO PRN (10:42)
[2020-01-08] MEDS: THIAMINE HCL 100 MG TABLET (FP) PO SCH (21:52)
[2020-01-08] MEDS: MELATONIN 5 MG TABLETS PO SCH (21:52)
[2020-01-09] MEDS ORDERED: chlordiazePOXIDE HCL 10 MG CAPSULE PO PRN
[2020-01-09] MEDS ORDERED: LORazepam 0.5 MG TABLET PO PRN
[2020-01-09] MEDS ORDERED: LORazepam 0.5 MG TABLET PO SCH (05:00)
[2020-01-09] MEDS ORDERED: chlordiazePOXIDE HCL 10 MG CAPSULE PO SCH (05:00)
[2020-01-09] MEDS: chlordiazePOXIDE 5 MG CAPSULE PO SCH ×4 (06:22→22:02)
[2020-01-09] MEDS: METHADONE HCL 40 MG DISPERSABLE TABLET PO SCH (06:22)
[2020-01-09] MEDS: DOCUSATE SODIUM 100 MG CAPSULE (FP) PO SCH ×3 (06:23→22:02)
[2020-01-09] MEDS: NICOTINE POLACRILEX 2 MG GUM BUC PRN ×2 (06:49→10:21)
[2020-01-09] MEDS: INSULIN (NOVOLOG) ASPART 100 UNITS/ML 10ML VIAL SQ SCH ×2 (07:19→17:47)
[2020-01-09] MEDS: PRENATAL VITAMINS W/ FOLIC ACID TABLET (FP) PO SCH (10:21)
[2020-01-09] MEDS: NICOTINE 7 MG/24 HOURS TOPICAL PATCH TD SCH (10:21)
[2020-01-09] MEDS ORDERED: PNEUMOC 13-VAL CONJ-DIP CRM/PF 0.5 ML DISP.SYRIN IM ONE (12:00)
[2020-01-09] MEDS ORDERED: PNEUMOCOCCAL 23 VACCINE 0.5 ML VIAL IM ONE (12:00)
--- NOTE | 2020-01-09 12:53 | PN ---
[facility] CIWA - CIWA Score Nausea/Vomitin-No Nausea/No Vomiting Muscle Tremors: 2 Anxiety: 1-Mildly Anxious Agitation: 1-Slight > Activity Paroxysmal Sweats: No Perspiration Orientation: 0-Oriented Tacttile Disturbances: 0-None Auditory Disturbances: 0-None Visual Disturbances: 0-None Headache: 0-None Present CIWA-Ar Total Score: 4 BHS Progress Note (SOAP) Subjective: diarrhea Objective: 01/09/20 12:48 Vital Signs Temperature 97.3 F L 01/09/20 08:52 Pulse Rate 82 01/09/20 08:52 Respiratory Rate 18 01/09/20 08:52 Blood Pressure 130/71 01/09/20 08:52 O2 Sat by Pulse Oximetry (%) 98 01/09/20 05:58 aaox3 ambulating no acute distress Assessment: 01/09/20 13:00 mild withdrawals Plan: continue detox pepto prn
[2020-01-09] MEDS: MELATONIN 5 MG TABLETS PO SCH (22:02)
[2020-01-09] MEDS: THIAMINE HCL 100 MG TABLET (FP) PO SCH (22:02)
[2020-01-09] MEDS: NYSTATIN/TRIAMCINOLONE TOPICAL CREAM 15 GM TUBE TP SCH (22:03)
[2020-01-10] MEDS ORDERED: LORazepam 0.5 MG TABLET PO ONE (05:00)
[2020-01-10] MEDS: METHADONE HCL 40 MG DISPERSABLE TABLET PO SCH (05:03)
[2020-01-10] MEDS: chlordiazePOXIDE HCL 10 MG CAPSULE PO SCH ×2 (05:03→17:01)
[2020-01-10] MEDS: DOCUSATE SODIUM 100 MG CAPSULE (FP) PO SCH ×3 (05:04→21:57)
[2020-01-10] MEDS: NICOTINE POLACRILEX 2 MG GUM BUC PRN ×3 (05:04→17:24)
[2020-01-10] MEDS: INSULIN (NOVOLOG) ASPART 100 UNITS/ML 10ML VIAL SQ SCH ×2 (08:06→17:02)
[2020-01-10] MEDS: NICOTINE 7 MG/24 HOURS TOPICAL PATCH TD SCH (09:58)
[2020-01-10] MEDS: NYSTATIN/TRIAMCINOLONE TOPICAL CREAM 15 GM TUBE TP SCH ×2 (09:59→21:59)
[2020-01-10] MEDS: PRENATAL VITAMINS W/ FOLIC ACID TABLET (FP) PO SCH (09:59)
--- NOTE | 2020-01-10 10:18 | PN ---
S CIWA - CIWA Score Nausea/Vomitin-Mild Nausea/No Vomiting Muscle Tremors: 2 Anxiety: 3 Agitation: 2 Paroxysmal Sweats: No Perspiration Orientation: 0-Oriented Tacttile Disturbances: 0-None Auditory Disturbances: 0-None Visual Disturbances: 0-None Headache: 0-None Present CIWA-Ar Total Score: 8 BHS Progress Note (SOAP) Subjective: pt states feeling fine with the librium detox. Here for detox from benzos. Says she would like to stop using. O: Vital Signs - 24 hr 01/09/20 01/09/20 01/09/20 12:59 17:35 20:36 Temperature 97.7 F 98.1 F 97.3 F L Pulse Rate 68 84 79 Respiratory 18 17 18 Rate Blood Pressure 106/68 133/74 126/58 L O2 Sat by Pulse 95 96 Oximetry (%) 01/10/20 04:49 Temperature 97.5 F L Pulse Rate 76 Respiratory 18 Rate Blood Pressure 126/67 O2 Sat by Pulse 96 Oximetry (%) Laboratory Tests 01/06/20 01/06/20 01/06/20 11:00 11:00 11:00 WBC 10.3 H RBC 4.45 Hgb 14.2 Hct 42.3 MCV 95.2 MCH 31.9 MCHC 33.5 RDW 13.6 Plt Count 168 D MPV 10.0 D Sodium 138 Potassium 4.0 Chloride 103 Carbon Dioxide 25 Anion Gap 10 BUN 9.3 Creatinine 1.5 H Est GFR (CKD-EPI)AfAm 43.13 Est GFR (CKD-EPI)NonAf 37.21 POC Glucometer Random Glucose 183 H Calcium 9.5 Total Bilirubin 0.6 AST 31 ALT 26 Alkaline Phosphatase 111 Total Protein 7.4 Albumin 4.0 Syphilis Serology COVID-19 (ISAAC) HIV Ag/Ab Combo Qual Negative 01/06/20 01/06/20 01/07/20 11:00 13:10 16:40 WBC RBC Hgb Hct MCV MCH MCHC RDW Plt Count MPV Sodium Potassium Chloride Carbon Dioxide Anion Gap BUN Creatinine Est GFR (CKD-EPI)AfAm Est GFR (CKD-EPI)NonAf POC Glucometer 115 Random Glucose Calcium Total Bilirubin AST ALT Alkaline Phosphatase Total Protein Albumin Syphilis Serology Non-reactive COVID-19 (ISAAC) Not detected HIV Ag/Ab Combo Qual 01/08/20 01/08/2020 05:58 16:27 06:21 WBC RBC Hgb Hct MCV MCH MCHC RDW Plt Count MPV Sodium Potassium Chloride Carbon Dioxide Anion Gap BUN Creatinine Est GFR (CKD-EPI)AfAm Est GFR (CKD-EPI)NonAf POC Glucometer 120 132 113 Random Glucose Calcium Total Bilirubin AST ALT Alkaline Phosphatase Total Protein Albumin Syphilis Serology COVID-19 (ISAAC) HIV Ag/Ab Combo Qual 01/09/20 01/10/20 16:56 05:08 WBC RBC Hgb Hct MCV MCH MCHC RDW Plt Count MPV Sodium Potassium Chloride Carbon Dioxide Anion Gap BUN Creatinine Est GFR (CKD-EPI)AfAm Est GFR (CKD-EPI)NonAf POC Glucometer 103 102 Random Glucose Calcium Total Bilirubin AST ALT Alkaline Phosphatase Total Protein Albumin Syphilis Serology COVID-19 (ISAAC) HIV Ag/Ab Combo Qual a/p: sedative detox with librium. Complete detox tomorrow. Pt states will go home. Does not need any meds- has them at home in MAT methadone has pcp
[2020-01-10] MEDS: MELATONIN 5 MG TABLETS PO SCH (21:56)
[2020-01-10] MEDS: hydrOXYzine PAMOATE 25 MG CAPSULE (FP) PO PRN (21:56)
[2020-01-10] MEDS: THIAMINE HCL 100 MG TABLET (FP) PO SCH (21:56)
[2020-01-11] MEDS ORDERED: chlordiazePOXIDE HCL 10 MG CAPSULE PO ONE (05:00)
[2020-01-11] MEDS: METHADONE HCL 40 MG DISPERSABLE TABLET PO SCH (05:18)
[2020-01-11] MEDS: DOCUSATE SODIUM 100 MG CAPSULE (FP) PO SCH (05:19)
[2020-01-11] MEDS: NICOTINE POLACRILEX 2 MG GUM BUC PRN (05:47)
[2020-01-11] MEDS: INSULIN (NOVOLOG) ASPART 100 UNITS/ML 10ML VIAL SQ SCH (06:54)
[2020-01-11 10:54] VITALS: BP 108/65; PULSE 113; TEMP 96.9
--- NOTE | 2020-01-11 13:40 | DS ---
[facility] Detox Discharge Summary Admission Date: 01/06/20 Discharge Date: 01/11/20 - History Present History: Alcohol Dependence, Opioid Dependence, Sedative Dependence, MMTP Additional Comments: Alert and oriented x 3, in no acute respiratory distress. Full ROM, ambulating in the unit without assistance. Detox protocol completed, stable for discharge today. Pertinent Past History: History of Asthma, chronic lower back pain, Hep C ( treated). alcohol, Benzo and Opioid dependence on MMTP - Physical Exam Results Vital Signs: Vital Signs Temperature 96.9 F L 01/11/20 09:22 Pulse Rate 113 H 01/11/20 09:22 Respiratory Rate 20 01/11/20 09:22 Blood Pressure 108/65 01/11/20 09:22 O2 Sat by Pulse Oximetry (%) 95 01/11/20 09:22 Vital Signs 01/11/20 09:22 Temperature 96.9 F L Pulse Rate 113 H Respiratory 20 Rate Blood Pressure 108/65 O2 Sat by Pulse 95 Oximetry (%) Laboratory Last Values WBC 10.3 K/mm3 (4.0-10.0) H 01/06/20 11:00 RBC 4.45 M/mm3 (3.60-5.2) 01/06/20 11:00 Hgb 14.2 GM/dL (10.7-15.3) 01/06/20 11:00 Hct 42.3 % (32.4-45.2) 01/06/20 11:00 MCV 95.2 fl (80-96) 01/06/20 11:00 MCH 31.9 pg (25.7-33.7) 01/06/20 11:00 MCHC 33.5 g/dl (32.0-36.0) 01/06/20 11:00 RDW 13.6 % (11.6-15.6) 01/06/20 11:00 Plt Count 168 K/MM3 (134-434) D 01/06/20 11:00 MPV 10.0 fl (7.5-11.1) D 01/06/20 11:00 Sodium 138 mmol/L (136-145) 01/06/20 11:00 Potassium 4.0 mmol/L (3.5-5.1) 01/06/20 11:00 Chloride 103 mmol/L (98-107) 01/06/20 11:00 Carbon Dioxide 25 mmol/L (21-32) 01/06/20 11:00 Anion Gap 10 MMOL/L (8-16) 01/06/20 11:00 BUN 9.3 mg/dL (7-18) 01/06/20 11:00 Creatinine 1.5 mg/dL (0.55-1.3) H 01/06/20 11:00 Est GFR (CKD-EPI)AfAm 43.13 01/06/20 11:00 Est GFR (CKD-EPI)NonAf 37.21 01/06/20 11:00 POC Glucometer 102 UNITS (80-120) 01/11/20 05:18 Random Glucose 183 mg/dL (74-106) H 01/06/20 11:00 Calcium 9.5 mg/dL (8.5-10.1) 01/06/20 11:00 Total Bilirubin 0.6 mg/dL (0.2-1) 01/06/20 11:00 AST 31 U/L (15-37) 01/06/20 11:00 ALT 26 U/L (13-61) 01/06/20 11:00 Alkaline Phosphatase 111 U/L (45-117) 01/06/20 11:00 Total Protein 7.4 g/dl (6.4-8.2) 01/06/20 11:00 Albumin 4.0 g/dl (3.4-5.0) 01/06/20 11:00 Syphilis Serology Non-reactive (NONREACTIVE) 01/06/20 11:00 COVID-19 (ISAAC) Not detected (Not Detected) 01/06/20 13:10 HIV Ag/Ab Combo Qual Negative (NEGATIVE) 01/06/20 11:00 Labs noted. Pertinent Admission Physical Exam Findings: Withdrawal symptoms. - Treatment Hospital Course: Detox Protocol Followed, Detoxed Safely, Discharged Condition Good - Medication Discharge Medications: Ambulatory Orders Methadone [Dolophine] 80 mg PO DAILY 10/03/12 Bisacodyl [Dulcolax] 10 mg PO HS 01/06/20 Docusate Sodium [Colace] 100 mg PO TID 01/06/20 Hydrocodone/Acetaminophen [Hydrocodon-Acetaminophn 10-325] 1 each PO TID PRN 01/06/20 clonazePAM [Clonazepam] 1 mg PO TID PRN 01/06/20 - Diagnosis (1) Alcohol dependence with acute alcoholic intoxication Status: Acute (2) Chronic back pain Status: Chronic Qualifiers: Back pain location: low back pain (3) Hepatitis C carrier Status: Chronic (4) Opioid dependence on agonist therapy Status: Chronic (5) Sedative dependence Status: Chronic - AMA Did Patient Leave Against Medical Advice: No
== END 2020-01-11 09:46 | disposition home or self-care (01) | DRG 773 ==
LOC: YASAS 09:50 → Y6N 12:24
PROVIDERS: ADMIT Allergy & Immunology; ATTEND Allergy & Immunology
PROC: HZ2ZZZZ Detoxification Services for Substance Abuse Treatment (ICD-10-PCS; principal; 2020-01-06)
DX: F10.220 Alcohol dependence with intoxication, uncomplicated (principal); F11.20 Opioid dependence, uncomplicated; F13.230 Sedative, hypnotic or anxiolytic dependence with withdrawal, uncomplicated; F17.210 Nicotine dependence, cigarettes, uncomplicated; F19.24 Other psychoactive substance dependence with psychoactive substance-induced mood disorder; F32.9 Major depressive disorder, single episode, unspecified; E78.00 Pure hypercholesterolemia, unspecified; E11.9 Type 2 diabetes mellitus without complications; J45.909 Unspecified asthma, uncomplicated; K59.00 Constipation, unspecified; M54.5 Low back pain; G89.29 Other chronic pain; B18.2 Chronic viral hepatitis C; Z86.69 Personal history of other diseases of the nervous system and sense organs; Z86.19 Personal history of other infectious and parasitic diseases; Z88.0 Allergy status to penicillin
CPT/HCPCS: 36415; 80053; 82962; 85027; 86780; 87389; 90732; G0009; U0003